=== PATIENT | male | born 1990 | race Caucasian/White ===

== ENCOUNTER 2020-07-22 08:05 | Emergency (ER) | payer OTHER, SELFPAY ==
[2020-07-22 08:15] VITALS: BP 137/84; PULSE 79; RESP 20; TEMP 36.4; O2SAT 98
[2020-07-22] MEDS: LIDOCAINE HCL 1% LOCAL INJ 20 ML VIAL 3 ML INFILTRATE (08:50)
[2020-07-22] MEDS: NEOMYCIN/POLYMYXIN/BACITRACIN OINTMENT PACKET 1 PACKET TOPICAL (09:01)
[2020-07-22] MEDS: TETANUS,DIPHTHERIA,AC PERTUSSIS ADULT 0.5 ML (ADACEL) (09:02)
--- NOTE | 2020-07-22 09:10 | ED.WOUNDLAC ---
HPI - Wound/Laceration General Chief Complaint: Wound/Laceration Stated Complaint: hand laceration Time Seen by Provider: 07/22/20 08:20 Source: patient Mode of arrival: ambulatory Limitations: no limitations History of Present Illness HPI narrative: Patient comes in after cutting his left lateral hand at the base of the thumb. The wound is 1.5cm long and gaped. The wound is not bleeding now. He cut himself with a clean knife opening presents. Onset (ago): minute(s) (30) Place: home Patient tetanus UTD: No Context: accidental Associated symptoms: none Review of Systems Constitutional: Constitutional: Reports no additional constitutional complaints Eyes: Eyes: Reports no additional eye complaints ENT: Reports system reviewed and no additional complaints, except as documented Cardiovascular: Cardiovascular: Reports no additional cardiovascular complaints Respiratory: Respiratory: Reports no additional respiratory complaints Gastrointestinal: Gastrointestinal: Reports no additional gastrointestinal complaints Genitourinary: Genitourinary: Reports no additional male genitourinary complaints Musculoskeletal: Musculoskeletal: Reports no additional musculoskeletal complaints Integumentary/Breasts: Skin/Breast: Reports system reviewed and no additional complaints, except as docu Neurologic: Reports system reviewed and no additional complaints, except as documented Psychiatric: Psychiatric: Reports no additional psychiatric complaints Endocrine: Endocrine: Reports no additional endocrine complaints Hematologic/Lymphatic: Hematologic/Lymphatic: Reports no additional hematologic/lymphatic complaints Allergic/Immunologic: Allergic/Immunologic: Reports no additional allergic/immunologic complaints [facility] Past Medical History Medical History (Updated 07/23/20 @ 03:31 by Van Dillard MD) No significant medical problems Surgical History Surgical History (Updated 07/23/20 @ 03:31 by Van Dillard MD) No significant past surgical history Family History Family History (Updated 07/23/20 @ 03:32 by Van Dillard MD) Other No significant family history Social History Social History (Updated 07/23/20 @ 03:34 by Van Dillard MD) Alcohol intake: current Exam Const: General: healthy appearing and no acute distress HENMT: Head: normal to inspection Eyes: Conjunctivae: conjunctivae normal Neck: Neck: normal visual inspection Chest: Chest palpation & inspection: normal inspection of the chest Resp: Effort & Inspection: normal respiratory effort Cardio: Rate: regular rate GI: GI Palp: Yes Soft to palpation (flat) Skin: General skin exam: normal color Neuro: General: patient oriented x3 and moves all extremities Extrem: General: normal to inspection Other: laceration 1.5cm to lateral left hand at base of thumb. Psych: Mental Status: mental status grossly normal Thought content: Yes Normal thought content present Course Course Emergency Course: Wound was infiltrated with lidocaine 1%, four cc, then closed with four 4-0 nylon sutures. Vital Signs Vital signs: Vital Signs Temperature 36.4 C 07/22/20 08:15 Pulse Rate 79 07/22/20 08:15 Respiratory Rate 20 07/22/20 08:15 Blood Pressure 137/84 07/22/20 08:15 Pulse Oximetry 98 07/22/20 08:15 Temperature 36.4 C 07/22/20 08:15 Pulse Rate 79 07/22/20 08:15 Respiratory Rate 20 07/22/20 08:15 Blood Pressure 137/84 07/22/20 08:15 Pulse Oximetry 98 07/22/20 08:15 Procedures Laceration Laceration 1: Date: 07/22/20 Time: 08:25 Side (If applicable): left Description: clean Depth: simple, single layer Local Anesthetic: lidocaine 1% Amount of anesthesia used (mL): 4 Pre-repair: wound explored and deep structures intact ====== Skin Level ====== Skin layer closed with: nylon (4-0) Size (cm): 4-0 Number of sutures: 4 Technique:
== END 2020-07-22 09:15 | disposition home or self-care (01) ==
PROVIDERS: Emergency Provider Emergency Medicine
DX: S61.412A Laceration without foreign body of left hand, initial encounter (principal); W26.0XXA Contact with knife, initial encounter
CPT/HCPCS: 12002; 90471; 90715; 99282

== ENCOUNTER 2023-04-09 06:01 | Emergency (ER) | payer BC, SELFPAY ==
[2023-04-09 06:02] VITALS: BP 140/79; PULSE 100; RESP 18; TEMP 36.8; O2SAT 98
--- NOTE | 2023-04-09 06:35 | ED.GENADULT ---
HPI - General Adult General Chief complaint: Extremity Problem,Nontraumatic Stated complaint: Right Ankle Pain History of Present Illness HPI narrative: 33yo man presents with new pain in his right foot and ankle upon waking up this morning. Hurts to try to move ankle side to side and feel stiff and limited in ROM. No straining or prolonged standing or walking yesterday. no swelling. No skin change or fever. Related Data Home Medications Medication Instructions Recorded Confirmed No Home Medications 04/09/23 04/09/23 Allergies Allergy/AdvReac Type Severity Reaction Status Date / Time No Known Allergies Allergy Verified 04/09/23 06:45 Review of Systems Review of Systems: All systems reviewed & are unremarkable except as noted in HPI and below Constitutional: Constitutional: Denies chills and Denies fever(s) Cardiovascular: Cardiovascular: Denies chest pain Respiratory: Respiratory: Denies dyspnea Gastrointestinal: Gastrointestinal: Denies abdominal pain PMFSH Past Medical History Medical History No significant medical problems Surgical History Surgical History No significant past surgical history Family History Family History Other No significant family history Social History Social History Alcohol intake: current Exam Const: General: healthy appearing and no acute distress Nutritional Appearance: well nourished Eyes: Conjunctivae: conjunctivae normal Cardio: Rate: regular rate Skin: General skin exam: normal color, no jaundice and no pallor Rashes: no rashes Neuro: General: patient oriented x3 and moves all extremities Gait exam (Neuro): Normal gait present Extrem: General: no clubbing, cyanosis or edema Other: normal appearance; tenderness to palpation of the plantar surface of the foot but no tenderness to dorsi- or plantarflexion; mild tenderness with inversion and eversion. Course Vital Signs Vital signs: Vital Signs Temperature 36.8 C 04/09/23 06:02 Pulse Rate 100 04/09/23 06:02 Respiratory Rate 18 04/09/23 06:02 Blood Pressure 140/79 04/09/23 06:02 Pulse Oximetry 98 04/09/23 06:02 Oxygen Delivery Room Air 04/09/23 06:02 Temperature 36.8 C 04/09/23 06:02 Pulse Rate 100 04/09/23 06:02 Respiratory Rate 18 04/09/23 06:02 Blood Pressure 140/79 04/09/23 06:02 Pulse Oximetry 98 04/09/23 06:02 Oxygen Delivery Room Air 04/09/23 06:02 Medical Decision Making MDM Narrative Medical decision making narrative: nontraumatic foot and ankle pain DDx gout, poorly fitting shoes, plantar fasciitis. Exam not consistent with fracture. Trial NSAIDs for relief. Vital Signs Vital Signs: Vital Signs Temperature 36.8 C 04/09/23 06:02 Pulse Rate 100 04/09/23 06:02 Respiratory Rate 18 04/09/23 06:02 Blood Pressure 140/79 04/09/23 06:02 Pulse Oximetry 98 04/09/23 06:02 Oxygen Delivery Room Air 04/09/23 06:02 Temperature 36.8 C 04/09/23 06:02 Pulse Rate 100 04/09/23 06:02 Respiratory Rate 18 04/09/23 06:02 Blood Pressure 140/79 04/09/23 06:02 Pulse Oximetry 98 04/09/23 06:02 Oxygen Delivery Room Air 04/09/23 06:02 Discharge Plan Discharge Clinical Impression: Acute pain of right foot Patient Disposition: Home, Self-Care Condition: Stable Additional Instructions: Your appears normal on exam, with no swelling or specific pattern of injury. It is possible that your pain is from an early gout or a mild foot sprain. Take the prescribed medication as needed to help with pain. Apply ice to the foot several times throughout the day until the pain is gone. Make sure that your boots fit well and are not too tight. Prescriptions: No Action No Home Medications
[2023-04-09] MEDS: KETOROLAC (*BKC) 60 MG/2 ML VIAL IM (06:45)
== END 2023-04-09 07:03 | disposition home or self-care (01) ==
LOC: CHSED 06:49
PROVIDERS: Emergency Provider Emergency Medicine
DX: M79.671 Pain in right foot (principal)
CPT/HCPCS: 96372; 99283; J1885